=== PATIENT | female | born 1990 | race American Indian/Alaskan Native ===

== ENCOUNTER 2017-05-11 17:02 | Emergency (ER) | payer MEDICAID ==
[2017-05-11] MEDS ORDERED: Lactated Ringer's 1,000 ML IV SCH (18:00)
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
[2017-05-11 18:16] VITALS: BMI 23.1
[2017-05-11 18:32] LABS: SQUAMOUS EPITHIAL 20 /hpf (0-5); URINE AMORPHOUS SEDIMENT RARE /ul (<OCC); URINE BACTERIA RARE (<OCC); URINE BILIRUBIN NEGATIVE (NEGATIVE); URINE BLOOD 1+ (NEGATIVE); URINE CLARITY Hazy (Clear); URINE COLOR Yellow (YELLOW); URINE GLUCOSE (UA) NORMAL (Normal); URINE LEUKOCYTE ESTERASE 3+ Leu/uL (Negative); URINE PROTEIN NEGATIVE (NEGATIVE)
[2017-05-11] MEDS ORDERED: Betamethasone Soluspan 30 mg/5mL Inj Susp IM ONE (18:45)
--- NOTE | 2017-05-11 19:41 | OBHP ---
Datetime: 05/11/2017 19:40 Admit Comment, IP Provider: pt feels better. ua 3+le s/p terb s/p procardia s/p betamethasobe plan dc home procardia bid macrobid po hy ptl given no sex f/u in [place] in 1 day Datetime: 05/11/2017 18:07 Comments, ACOG Physical Exam: gravid,non tender (Annotations: Data stored by CPN on behalf of user) EGA AdmitDate IP: 33.2
--- NOTE | 2017-05-11 19:44 | OBDCSUM ---
Datetime: 05/11/2017 19:41 Discharged to, Provider: Home Follow up at, Provider: 1day Follow up in weeks, Provider: [facility] Disch Activity Restrictions: No sexual activity; Nothing in vagina - [place], tampons, douche Discharge Comment, Provider: wa home procardia bid macrobid po hy ptl given no sex f/u in [place] in 1 day Discharge Diagnosis Prov Other: 33week nst pretm ctxs
[2017-05-12 00:42] VITALS: BP 110/62; PULSE 79; RESP 18; TEMP 97.6; O2SAT 100
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
[2017-05-12] MEDS ORDERED: Betamethasone Soluspan 30 mg/5mL Inj Susp IM STA (18:17)
== END 2017-05-11 20:28 | disposition home or self-care (01) ==
LOC: C.EROB 17:02
DX: O26.893 Other specified pregnancy related conditions, third trimester (principal); Z3A.33 33 weeks gestation of pregnancy; Z23 Encounter for immunization
CPT/HCPCS: 81001; 96372; 99283; J0702; J3105; J7120

== ENCOUNTER 2017-05-12 18:29 | Emergency (ER) | payer MEDICAID ==
[2017-05-11 18:16] VITALS: BMI 23.1
[2017-05-12] MEDS ORDERED: Betamethasone Soluspan 30 mg/5mL Inj Susp IM ONE (18:42)
[2017-05-12 23:04] VITALS: PULSE 65; O2SAT 99
== END 2017-05-12 19:00 | disposition home or self-care (01) ==
LOC: C.EROB 18:29
DX: O26.893 Other specified pregnancy related conditions, third trimester (principal); Z3A.33 33 weeks gestation of pregnancy
CPT/HCPCS: 96372; 99283; J0702

== ENCOUNTER 2017-05-22 21:36 | Emergency (ER) | payer MEDICAID ==
[2017-05-22] MEDS ORDERED: Dextrose 5%/Lactated Ringer's 1,000 ML IV SCH (22:00)
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
[2017-05-22 22:35] LABS: BASO % 0.3 % (0.0-2.0); EOS % 0.3 % (0.0-4.0); HEMOGLOBIN 10.3 g/dL (11.0-16.0); LYMPH # 2.7 K/uL (1.0-4.3); LYMPH % 21.1 % (20.0-40.0); MEAN CELL VOLUME 76.8 fL (81.0-99.0); MEAN CORPUSCULAR HEMOGLOBIN 25.4 pg (27.0-31.0); MEAN PLATELET VOLUME 8.6 fL (7.2-11.7); MONO # 0.9 K/uL (0.0-0.8); MONO % 6.7 % (0.0-10.0); NEUT # 9.2 K/uL (1.8-7.0); NEUT % 71.6 % (50.0-75.0); RBC 4.07 Mil/uL (3.80-5.20); RED CELL DISTRIBUTION WIDTH 14.8 % (11.5-14.5); WHITE BLOOD COUNT 12.8 K/uL (4.8-10.8)
[2017-05-22 22:45] LABS: SQUAMOUS EPITHIAL 16 /hpf (0-5); URINE BACTERIA RARE (<OCC); URINE BILIRUBIN NEGATIVE (NEGATIVE); URINE BLOOD 1+ (NEGATIVE); URINE CLARITY Hazy (Clear); URINE COLOR Yellow (YELLOW); URINE GLUCOSE (UA) NORMAL (Normal); URINE LEUKOCYTE ESTERASE 3+ Leu/uL (Negative); URINE PROTEIN 1+ mg/dL (NEGATIVE)
[2017-05-22 22:47] LABS: ALB/GLOB RATIO 0.9 (1.0-2.1); ALBUMIN 3.5 g/dL (3.5-5.0); ALT/SGPT 23 U/L (9-52); AST/SGOT 27 U/L (14-36); BLOOD UREA NITROGEN 7 mg/dL (7-17); CALCIUM 8.6 mg/dl (8.6-10.4); GFR AFRICAN-AMERICAN > 60; GFR NON-AFRICAN AMERICAN > 60
[2017-05-22 22:51] LABS: BARBITURATES, UR NEGATIVE (NEGATIVE); BENZODIAZEPINES, UR NEGATIVE (NEGATIVE); OPIATES, UR NEGATIVE (NEGATIVE); PHENCYCLIDINE, UR NEGATIVE (NEGATIVE)
--- NOTE | 2017-05-23 01:11 | US ---
EXAM: US Uterus, Limited CLINICAL HISTORY: 26 years old, female; Signs and symptoms; Other: Vag bleed; ; Additional info: Vag bledi laura R/O previa, retroplacenta TECHNIQUE: Real-time ultrasound of the maternal uterus (limited) with image documentation. COMPARISON: No relevant prior studies available. FINDINGS: Fetus: Single live intrauterine gestation. Umbilical cord around neck. Position: Vertex. Heart rate: heart rate of 138 beats per minute. Placenta: Anterior fundal. No placenta previa or abruption. Amniotic fluid: Normal. 14.8 cm. Cervix: Closed cervix. Cervical length = 2.0 cm. IMPRESSION: 1. Single live intrauterine gestation. 2. Umbilical cord around neck. 3. Shortened cervix, 2.0 cm. EXAM: US Biophysical Profile Without Non-Stress Testing CLINICAL HISTORY: 26 years old, female; Signs and symptoms; Other: Vag bleed; ; Additional info: Vag bledi laura R/O previa, retroplacenta TECHNIQUE: Real-time ultrasound of the maternal pelvis for biophysical profile evaluation with image documentation. COMPARISON: No relevant prior studies available. FINDINGS: breathing movements: Present. Score 2/2. Gross body movements: Present. Score 2/2. tone: Present. Score 2/2. Qualitative amniotic fluid volume: Within normal limits. Score 2/2. IMPRESSION: Normal biophysical profile ultrasound. Score 8/8.
[2017-05-23 05:49] VITALS: BP 118/60; PULSE 69; RESP 18; TEMP 97.4
== END 2017-05-23 01:35 | disposition home or self-care (01) ==
LOC: C.EROB 21:36
DX: O46.93 Antepartum hemorrhage, unspecified, third trimester (principal); Z3A.34 34 weeks gestation of pregnancy
CPT/HCPCS: 76815; 76818; 80053; 80324; 80345; 80346; 80349; 80353; 80358; 80361; 81001; 83992; 85025; 86850; 86900; 87086; 87491; 87591; 99283; J7120